=== PATIENT | female | born 1960 | race Caucasian/White ===

== ENCOUNTER 2017-05-20 08:25 | Day surgery (SDC) | payer MEDICARE, SELFPAY ==
[2017-05-20] MEDS ORDERED: fentaNYL 100 MCG/2 ML SDV ONE (08:51)
[2017-05-20] MEDS ORDERED: Propofol 200 MG/20 ML SDV ONE (08:51)
[2017-05-20] MEDS ORDERED: Midazolam 1 MG/ML 2 ML SDV ONE (08:51)
[2017-05-20] MEDS ORDERED: Lidocaine 2% 5 ML SDV ONE (08:51)
[2017-05-20] MEDS ORDERED: Sodium Chloride 0.9% 5 ML Syringe FLUSH PRN (09:00)
[2017-05-20] MEDS ORDERED: Lactated Ringers 1,000 ML IV SCH (09:00)
[2017-05-20] MEDS ORDERED: Propofol 200 MG/20 ML SDV IV ONE (10:01)
[2017-05-20] MEDS ORDERED: Midazolam 1 MG/ML 2 ML SDV IV ONE (10:01)
[2017-05-20] MEDS ORDERED: fentaNYL 100 MCG/2 ML SDV IV ONE (10:01)
--- NOTE | 2017-05-20 10:42 | PCM.OPNOTE ---
- General Post-Op/Procedure Note Date of Surgery/Procedure: 05/20/17 Operative Procedure(s): Upper GI endoscopy Findings: a 5 cm hiatal hernia with mild reflux esophagitis. Pre Op Diagnosis: Persistent epigastric discomfort, frequent vomiting. Anesthesia Technique: MAC Primary Surgeon: Mickie Edwards Complications: None Condition: Good Free Text/Narrative:: INFORMED CONSENT: Patient is here today for elective upper GI endoscopy. All aspects of this procedure have been discussed with the patient. All possible complications also, including possibility of perforation, infection, pain, bleeding, numbness of the throat, swallowing difficulty and unknown complications. In the event of perforation the patient may need surgical exploration to repair the defect. The patient understands fully well. Patient did not have any further questions for me at the end of my interview. The patient wishes for me to proceed. INSTRUMENT USED: Video gastroscope ANESTHESIA: [MAC] ASA CLASSIFICATION: [2] PROCEDURE PERFORMED: [Upper gastrointestinal endoscopy] PHARYNX: Normal. ESOPHAGUS: Normal. Proximal: Normal. Middle: Normal. Lower: small hiatal hernia with mild reflux esophagitis noted. No ulceration noted.. GE Junction: Normal. STOMACH: small pouch, previous gastric bypass. stomach completely normal. Afferent and efferent openings are both normal. No evidence of obstruction or ulceration noted. RETROFLEXION: Normal. BIOPSY: None. TOLERANCE: Excellent. COMPLICATIONS: None.
[2017-05-20 11:17] VITALS: BP 110/72
== END 2017-05-20 12:05 | disposition home or self-care (01) ==
LOC: KA.SDS 08:25
PROVIDERS: ATTEND Family Medicine
DX: K21.0 Gastro-esophageal reflux disease with esophagitis (principal); K44.9 Diaphragmatic hernia without obstruction or gangrene; Z98.84 Bariatric surgery status; Z91.040 Latex allergy status; Z79.82 Long term (current) use of aspirin; Z79.899 Other long term (current) drug therapy; Z98.890 Other specified postprocedural states
CPT/HCPCS: 43235; J2250; J2704; J3010; J7120; 00740

== ENCOUNTER 2017-10-04 13:25 | Emergency (ER) | payer MEDICARE, MEDICAID ==
[2017-10-04 13:49] VITALS: BP 131/77
--- NOTE | 2017-10-04 14:45 | EDM.PDOC ---
ED HPI GENERAL MEDICAL PROBLEM - General Chief Complaint: Lower Extremity Injury/Pain Stated Complaint: LEFT HIP PAIN Time Seen by Provider: 10/04/17 14:39 Source of Information: Reports: Patient History Limitations: Reports: No Limitations - History of Present Illness INITIAL COMMENTS - FREE TEXT/NARRATIVE: Patient is a 57-year-old female who presents emergency department today with complaint of hip and pelvis pain secondary to fall yesterday morning. Patient states that her knees are very weak and she fell backwards landing on her buttocks. Patient states that she also fell about 2 weeks ago and that she has problems with her knees. Patient denies head trauma, dizziness, syncope, fall on left side, abdominal pain, chest pain, shortness of breath, headache, or blurry vision. Onset Date: 10/03/17 Onset Time: 07:30 Duration: Day(s): Location: Reports: Pelvis Quality: Reports: Ache Severity: Mild Improves with: Reports: None Worsens with: Reports: Movement Context: Reports: Trauma Associated Symptoms: Reports: No Other Symptoms Left Hip Pain Score (Numeric/FACES): 10 - Related Data Allergies Allergy/AdvReac Type Severity Reaction Status Date / Time Latex, Natural Rubber Allergy Rash Verified 10/04/17 13:47 Home Meds: Home Meds ARIPiprazole [Abilify] 10 mg PO DAILY 10/04/17 [History] Acetaminophen [Acetaminophen 8 Hour] 650 mg PO TID 10/04/17 [History] Aspirin 81 mg PO DAILY 10/04/17 [History] B12/Levomefolate Calcium/B-6 [Foltx Tablet] 1,000 mcg IM ASDIRECTED 10/04/17 [ History] Cholecalciferol (Vitamin D3) [Vitamin D] 5,000 unit PO DAILY 10/04/17 [History] Estrogens, Conjugated [Premarin] 1 tab PO DAILY 10/04/17 [History] Ferrous Sulfate 325 mg PO QID 10/04/17 [History] Lisinopril/Hydrochlorothiazide [Lisinopril-Hctz 10-12.5 mg Tab] 1 tab PO BID [History] Morphine [MS Contin] 15 mg PO BID 10/04/17 [History] Multivitamin [Multivitamins] 1 tab PO DAILY 10/04/17 [History] Pantoprazole Sodium [Protonix] 40 mg PO BID 10/04/17 [History] Past Medical History HEENT History: Reports: Cataract, Impaired Vision Cardiovascular History: Reports: Hypertension Gastrointestinal History: Reports: Chronic Diarrhea, GERD, Hiatal Hernia Genitourinary History: Reports: None 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: Musculoskeletal History: Reports: Arthritis Neurological History: Reports: Migraines Psychiatric History: Reports: Depression Endocrine/Metabolic History: Reports: Obesity/BMI 30+ Hematologic History: Reports: Blood Transfusion(s) - Infectious Disease History Infectious Disease History: Reports: Mumps - Past Surgical History HEENT Surgical History: Reports: Tonsillectomy Cardiovascular Surgical History: Reports: None GI Surgical History: Reports: Appendectomy, Bariatric Procedure, Cholecystectomy , Colonoscopy, EGD Female Surgical History: Reports: Hysterectomy Endocrine Surgical History: Reports: None Neurological Surgical History: Reports: None Musculoskeletal Surgical History: Reports: Arthroscopic Knee Social & Family History - Tobacco Use Smoking Status *Q: Never Smoker - Caffeine Use Caffeine Use: Reports: Coffee, Soda - Recreational Drug Use Recreational Drug Use: No Review of Systems - Review of Systems Review Of Systems: ROS reveals no pertinent complaints other than HPI. Constitutional: Reports: No Symptoms Eyes: Reports: No Symptoms Ears: Reports: No Symptoms Nose: Reports: No Symptoms Mouth/Throat: Reports: No Symptoms Respiratory: Reports: No Symptoms Cardiovascular: Reports: No Symptoms GI/Abdominal: Reports: No Symptoms Genitourinary: Reports: No Symptoms Musculoskeletal: Reports: Back Pain (Of chronic nature), Other (Left pelvis pain ) Skin: Reports: No Symptoms Neurological: Reports: No Symptoms Psychiatric: Reports: No Symptoms ED EXAM, GENERAL - Physical Exam Exam: See Below Free Text/Narrative:: Patient is morbidly obese Exam Limited By: No Limitations General Appearance: Alert, WD/WN, No Apparent Distress Nose: Normal Inspection, No Blood Throat/Mouth: Normal Inspection, Normal Oropharynx, No Airway Compromise Head: Atraumatic, Normocephalic Neck: Normal Inspection, Supple, Non-Tender Respiratory/Chest: No Respiratory Distress, Lungs Clear, Normal Breath Sounds, No Accessory Muscle Use, Chest Non-Tender Cardiovascular: Regular Rate, Rhythm, No Murmur GI/Abdominal: Normal Bowel Sounds, Soft Back Exam: Other (Left lateral pelvis discomfort with palpation.). No: CVA Tenderness (L), CVA Tenderness (R) Extremities: Normal Inspection Neurological: Alert, Oriented, CN II-XII Intact, Normal Cognition Psychiatric: Normal Affect, Normal Mood Skin Exam: Warm, Dry, Intact, Normal Color, No Rash Course - Vital Signs Last Recorded V/S: Last Vital Signs Temp 97.4 F 10/04/17 13:41 Pulse 87 10/04/17 13:41 Resp 20 10/04/17 13:41 BP 131/77 10/04/17 13:41 Pulse Ox 99 10/04/17 13:41 - Orders/Labs/Meds Orders: Active Orders 24 hr Category Date Time Status Pelvis 1V or 2V [CR] Stat Exams 10/04/17 14:40 Ordered - Radiology Interpretation Free Text/Narrative:: PELVIS X-RAY NEGATIVE FOR ACUTE PROCESS - Re-Assessments/Exams Free Text/Narrative Re-Assessment/Exam: 10/04/17 16:03 PATIENT AFEBRILE, NONTOXIC APPEARING. VITAL SIGNS STABLE. PAIN RESOLVED AND PATIENT ABLE TO AMBULATE. Departure - Departure Time of Disposition: 16:04 Disposition: Home, Self-Care 01 Condition: Good Clinical Impression: Morbid obesity, BMI not known Hip joint pain Qualifiers: Laterality: left Qualified Code(s): M25.552 - Pain in left hip - Discharge Information Instructions: Hip Pain, Fall Prevention in the Home, [id number] Referrals: Adeel Jackson, MORTGAGE BANKER [Primary Care Provider] - Additional Instructions: FOLLOW-UP AT [facility] SCHEDULED ON THURSDAY. CONTINUE LISINOPRIL 10 MG ONCE A DAY AND NOT TWICE A DAY. - My Orders Last 24 Hours: My Active Orders 10/04/17 14:40 Pelvis 1V or 2V [CR] Stat - Assessment/Plan Last 24 Hours: My Active Orders 10/04/17 14:40 Pelvis 1V or 2V [CR] Stat Assessment:: HIP PAIN Plan: FOLLOW-UP WITH PCP
== END 2017-10-04 16:15 | disposition home or self-care (01) ==
LOC: MERGE 13:25 → KA.ED 13:25
DX: M25.552 Pain in left hip (principal); E66.01 Morbid (severe) obesity due to excess calories; I10 Essential (primary) hypertension; K21.9 Gastro-esophageal reflux disease without esophagitis; Z79.82 Long term (current) use of aspirin; Z79.899 Other long term (current) drug therapy; Z91.040 Latex allergy status
CPT/HCPCS: 72170; 99283

== ENCOUNTER 2017-12-08 10:09 | Inpatient (IN) | payer MEDICARE, OTHER ==
[2017-12-08] MEDS ORDERED: B12 IM SCH (20:30)
[2017-12-08] MEDS ORDERED: LEVOMEFOLATE CALCIUM IM SCH (20:30)
[2017-12-08] MEDS ORDERED: B6 IM SCH (20:30)
[2017-12-08] MEDS: Morphine 15 MG Tab.ER PO SCH (21:31)
[2017-12-08] MEDS: Apixaban 2.5 MG Tab PO SCH (21:31)
[2017-12-08] MEDS: Lisinopril 10 MG Tab PO SCH (21:32)
[2017-12-08] MEDS: Acetaminophen 650 MG Tab.ER PO SCH (21:32)
[2017-12-08] MEDS: Omeprazole 20 MG Cap.CR PO SCH (21:32)
[2017-12-08] MEDS: Hydrochlorothiazide 12.5 MG Cap PO SCH (21:33)
[2017-12-08] MEDS: Ergocalciferol (Vitamin D2) 50,000 Unit Cap PO SCH (21:34)
[2017-12-09] MEDS: Acetaminophen 650 MG Tab.ER PO SCH ×4 (05:54→20:50)
[2017-12-09] MEDS: Omeprazole 20 MG Cap.CR PO SCH ×2 (06:18→17:13)
[2017-12-09] MEDS: DULoxetine 30 MG Cap PO SCH (09:47)
[2017-12-09] MEDS: Hydrochlorothiazide 12.5 MG Cap PO SCH ×2 (09:49→20:49)
[2017-12-09] MEDS: Lisinopril 10 MG Tab PO SCH ×2 (09:49→20:49)
[2017-12-09] MEDS: Morphine 15 MG Tab.ER PO SCH ×2 (09:50→20:53)
[2017-12-09] MEDS: tiZANidine 4 MG Tab PO SCH (09:50)
[2017-12-09] MEDS: Apixaban 2.5 MG Tab PO SCH (09:51)
[2017-12-09] MEDS: ARIPiprazole 5 MG Tab PO SCH (09:51)
[2017-12-09] MEDS: Estradiol 0.5 MG Tab PO SCH (09:51)
[2017-12-09] MEDS: Acetaminophen/HYDROcodone 325-5 MG Tab PO PRN (14:03)
--- NOTE | 2017-12-09 15:05 | HP ---
HISTORY OF PRESENT ILLNESS: This is a 57-year-old female patient who underwent right total knee replacement by Dr. Arnold in [facility] on 12/02/2017. The patient was transferred here for swing bed status. The patient today states she is doing okay. She says she keeps putting ice on the knee. She says it is still little swollen, but not very bruised. She says she has no other health concerns. She is feeling pretty good. PAST MEDICAL HISTORY: The patient does have a past medical history of osteoarthritis, chronic pain, mood disorder with depression, menopausal female, hypertension, GERD, migraines. PAST SURGICAL HISTORY: Recent right total knee arthroplasty. MEDICATIONS: Medications that she was taking at home; she gets a B12 injection 1000 mcg monthly, she takes an aspirin 81 mg daily, lisinopril 10 mg twice a day, HCTZ 12.5 mg twice a day, she takes Zanaflex 4 mg daily, she takes Imitrex 25 mg as needed for migraine headaches, she takes Zantac 150 mg at bedtime, she takes Protonix 20 mg twice a day, Cymbalta 120 mg daily, Tylenol as needed, Abilify 5 mg daily, MS Contin 15 mg twice a day, estradiol 0.5 mg daily, and she was recently started after surgery on Eliquis 2.5 mg twice a day. ALLERGIES: She is allergic to latex and rubber. SOCIAL PERSONAL HISTORY: The patient lives at the [facility] at this time. She will likely go back there. No alcohol or tobacco use. REVIEW OF SYSTEMS: CONSTITUTIONAL: No weight loss. No fever. No chills. No night sweats. Appetite is good. No fatigue. EYES: No recent visual changes. ENT: No sinus congestion or hoarseness. CARDIOVASCULAR: No chest pain or palpitations. RESPIRATORY: No cough. No shortness of breath. GI: No vomiting, diarrhea or melena. : No dysuria or hematuria. MUSCULOSKELETAL: Complaining of right knee swelling and occasional pain with walking. INTEGUMENTARY: No rash or pruritus. NEUROLOGIC/PSYCHIATRIC: No recent headache or focal weakness. No depressive symptoms. ENDOCRINE: No heat or cold intolerances or polydipsia. HEMATOLOGIC/LYMPHATIC: No excessive bruising or lymph node swelling. ALLERGIC/IMMUNOLOGIC: No hives or recurrent infections. PHYSICAL EXAMINATION: GENERAL: This is an elderly female, in no acute distress. VITAL SIGNS: 144/89, temperature is 98.8, pulse is 99, respiratory rate is 18, oxygen saturation on room air is 100%. HEENT: Head is normocephalic. Tympanic membranes are intact. EOMs are intact. Pupils are equal, round, to light and accommodation. Nose is clear. No pharyngeal erythema noted. RESPIRATORY: Lung sounds are clear in upper lobes, slightly diminished at bilateral bases. CARDIAC: Regular rate and rhythm. No murmurs identified. ABDOMEN: Large, soft, nontender, nondistended. Bowel sounds present x4. EXTREMITIES: Right knee has an incision, very mild ecchymosis, slightly swollen. Incision looks good. All other joints have no joint effusions. NEUROLOGIC: Grossly intact. DIAGNOSTIC: The patient had a hemoglobin drawn yesterday at [facility], it was 8.4. IMPRESSION/PLAN: 1. Right total knee arthroplasty. Plan: The patient's incision looks good. She is scheduled for physical therapy today at 2:30. We will continue with anticoagulation of Eliquis 2.5 mg twice a day. She also gets a Zanaflex 4 mg daily to help with muscle spasms. 2. Chronic pain with acute pain from recent surgery. Plan: We will continue with the patient's MS Contin 15 mg twice daily that she has been on. I am going to give her some hydrocodone 5/325 that she can have one tab before and after therapy as needed for right knee pain. 3. Mood disorder with depression. Plan: Continue with Abilify 5 mg daily along with Cymbalta 120 mg daily. 4. Menopausal female. Plan: Continue with estradiol 0.5 mg daily. 5. Hypertension has been controlled so far. We will continue with HCTZ 12.5 mg twice a day along with lisinopril 10 mg twice a day. 6. Gastroesophageal reflux disease. Plan: Continue with omeprazole 20 mg twice a day along with Zantac 150 mg at bedtime. 7. History of migraine headaches. Plan: Continue with Imitrex 25 mg as needed for headaches. 8. Urinary frequency. Plan: The patient complains of some urinary frequency during the night. I will obtain a urinalysis today. /[id number]/MODL
[2017-12-09] MEDS: Apixaban 5 MG Tab PO SCH (20:48)
[2017-12-10] MEDS: Acetaminophen/HYDROcodone 325-5 MG Tab PO PRN ×2 (05:10→14:05)
[2017-12-10] MEDS: Omeprazole 20 MG Cap.CR PO SCH ×2 (06:09→17:09)
[2017-12-10] MEDS: DULoxetine 30 MG Cap PO SCH (08:15)
[2017-12-10] MEDS: Hydrochlorothiazide 12.5 MG Cap PO SCH ×2 (08:16→20:58)
[2017-12-10] MEDS: ARIPiprazole 5 MG Tab PO SCH (08:16)
[2017-12-10] MEDS: Estradiol 0.5 MG Tab PO SCH (08:16)
[2017-12-10] MEDS: tiZANidine 4 MG Tab PO SCH (08:16)
[2017-12-10] MEDS: Apixaban 5 MG Tab PO SCH ×2 (08:17→20:57)
[2017-12-10] MEDS: Lisinopril 10 MG Tab PO SCH ×2 (08:17→20:59)
[2017-12-10] MEDS: Acetaminophen 650 MG Tab.ER PO SCH ×4 (08:18→20:58)
[2017-12-10] MEDS: Aspirin 81 MG Tab.EC PO SCH (08:19)
[2017-12-10] MEDS: Morphine 15 MG Tab.ER PO SCH ×2 (08:21→20:58)
[2017-12-10] MEDS: Sulfamethoxazole/Trimethoprim 800-160 MG Tab PO SCH ×2 (10:03→20:58)
[2017-12-11] MEDS: Acetaminophen/HYDROcodone 325-5 MG Tab PO PRN ×2 (00:35→19:49)
[2017-12-11] MEDS: Omeprazole 20 MG Cap.CR PO SCH ×2 (06:19→17:46)
[2017-12-11] MEDS: Morphine 15 MG Tab.ER PO SCH ×2 (08:06→20:42)
[2017-12-11] MEDS: Acetaminophen 650 MG Tab.ER PO SCH ×3 (08:08→20:39)
[2017-12-11] MEDS: tiZANidine 4 MG Tab PO SCH (08:08)
[2017-12-11] MEDS: Lisinopril 10 MG Tab PO SCH ×2 (08:09→20:39)
[2017-12-11] MEDS: Hydrochlorothiazide 12.5 MG Cap PO SCH ×2 (08:09→20:39)
[2017-12-11] MEDS: Sulfamethoxazole/Trimethoprim 800-160 MG Tab PO SCH ×2 (08:09→20:39)
[2017-12-11] MEDS: Estradiol 0.5 MG Tab PO SCH (08:10)
[2017-12-11] MEDS: DULoxetine 30 MG Cap PO SCH (08:10)
[2017-12-11] MEDS: Apixaban 5 MG Tab PO SCH ×2 (08:10→20:39)
[2017-12-11] MEDS: ARIPiprazole 5 MG Tab PO SCH (08:11)
[2017-12-12] MEDS: Omeprazole 20 MG Cap.CR PO SCH ×2 (06:31→17:08)
[2017-12-12] MEDS: Acetaminophen 650 MG Tab.ER PO SCH ×3 (09:07→21:14)
[2017-12-12] MEDS: tiZANidine 4 MG Tab PO SCH (09:07)
[2017-12-12] MEDS: Sulfamethoxazole/Trimethoprim 800-160 MG Tab PO SCH ×2 (09:08→21:14)
[2017-12-12] MEDS: Lisinopril 10 MG Tab PO SCH ×2 (09:08→21:13)
[2017-12-12] MEDS: Hydrochlorothiazide 12.5 MG Cap PO SCH ×2 (09:08→21:13)
[2017-12-12] MEDS: Apixaban 5 MG Tab PO SCH ×2 (09:08→21:12)
[2017-12-12] MEDS: Estradiol 0.5 MG Tab PO SCH (09:09)
[2017-12-12] MEDS: DULoxetine 30 MG Cap PO SCH (09:09)
[2017-12-12] MEDS: ARIPiprazole 5 MG Tab PO SCH (09:09)
[2017-12-12] MEDS: Morphine 15 MG Tab.ER PO SCH ×2 (09:11→21:18)
[2017-12-12] MEDS: Acetaminophen/HYDROcodone 325-5 MG Tab PO PRN (15:30)
[2017-12-13] MEDS: Acetaminophen/HYDROcodone 325-5 MG Tab PO PRN ×2 (05:54→17:22)
[2017-12-13] MEDS: Omeprazole 20 MG Cap.CR PO SCH ×2 (05:59→17:22)
[2017-12-13] MEDS: Acetaminophen 650 MG Tab.ER PO SCH ×3 (08:44→20:49)
[2017-12-13] MEDS: tiZANidine 4 MG Tab PO SCH (08:44)
[2017-12-13] MEDS: Hydrochlorothiazide 12.5 MG Cap PO SCH ×2 (08:45→20:47)
[2017-12-13] MEDS: Lisinopril 10 MG Tab PO SCH ×2 (08:45→20:48)
[2017-12-13] MEDS: Morphine 15 MG Tab.ER PO SCH ×2 (08:45→20:53)
[2017-12-13] MEDS: Estradiol 0.5 MG Tab PO SCH (08:46)
[2017-12-13] MEDS: DULoxetine 30 MG Cap PO SCH (08:46)
[2017-12-13] MEDS: Apixaban 5 MG Tab PO SCH ×2 (08:46→20:46)
[2017-12-13] MEDS: ARIPiprazole 5 MG Tab PO SCH (08:46)
[2017-12-14] MEDS: Acetaminophen/HYDROcodone 325-5 MG Tab PO PRN ×2 (02:31→14:24)
[2017-12-14] MEDS: Omeprazole 20 MG Cap.CR PO SCH ×2 (06:05→17:51)
[2017-12-14] MEDS: Morphine 15 MG Tab.ER PO SCH ×2 (08:06→20:47)
[2017-12-14] MEDS: DULoxetine 30 MG Cap PO SCH (08:07)
[2017-12-14] MEDS: ARIPiprazole 5 MG Tab PO SCH (08:07)
[2017-12-14] MEDS: Apixaban 5 MG Tab PO SCH ×2 (08:08→20:45)
[2017-12-14] MEDS: Estradiol 0.5 MG Tab PO SCH (08:09)
[2017-12-14] MEDS: tiZANidine 4 MG Tab PO SCH (08:09)
[2017-12-14] MEDS: Hydrochlorothiazide 12.5 MG Cap PO SCH ×2 (08:10→20:47)
[2017-12-14] MEDS: Lisinopril 10 MG Tab PO SCH ×2 (08:10→20:47)
[2017-12-14] MEDS: Acetaminophen 650 MG Tab.ER PO SCH ×4 (09:00→20:47)
[2017-12-15] MEDS: Acetaminophen/HYDROcodone 325-5 MG Tab PO PRN ×2 (02:41→13:24)
[2017-12-15] MEDS: Omeprazole 20 MG Cap.CR PO SCH ×2 (06:11→17:55)
[2017-12-15] MEDS: Ergocalciferol (Vitamin D2) 50,000 Unit Cap PO SCH (07:57)
[2017-12-15] MEDS: ARIPiprazole 5 MG Tab PO SCH (08:11)
[2017-12-15] MEDS: Hydrochlorothiazide 12.5 MG Cap PO SCH ×2 (08:11→15:16)
[2017-12-15] MEDS: Apixaban 5 MG Tab PO SCH ×2 (08:11→20:53)
[2017-12-15] MEDS: DULoxetine 30 MG Cap PO SCH (08:11)
[2017-12-15] MEDS: Estradiol 0.5 MG Tab PO SCH (08:11)
[2017-12-15] MEDS: tiZANidine 4 MG Tab PO SCH (08:12)
[2017-12-15] MEDS: Acetaminophen 650 MG Tab.ER PO SCH ×3 (08:12→20:54)
[2017-12-15] MEDS: Morphine 15 MG Tab.ER PO SCH ×2 (08:12→20:58)
[2017-12-15] MEDS: Lisinopril 10 MG Tab PO SCH ×2 (08:13→15:15)
[2017-12-16] MEDS: Acetaminophen/HYDROcodone 325-5 MG Tab PO PRN ×2 (01:51→12:16)
[2017-12-16] MEDS: Omeprazole 20 MG Cap.CR PO SCH ×2 (06:30→17:11)
[2017-12-16] MEDS: ARIPiprazole 5 MG Tab PO SCH (08:21)
[2017-12-16] MEDS: Acetaminophen 650 MG Tab.ER PO SCH ×3 (08:21→21:05)
[2017-12-16] MEDS: Morphine 15 MG Tab.ER PO SCH ×2 (08:21→21:05)
[2017-12-16] MEDS: Hydrochlorothiazide 12.5 MG Cap PO SCH ×2 (08:22→16:03)
[2017-12-16] MEDS: Apixaban 5 MG Tab PO SCH ×2 (08:22→21:05)
[2017-12-16] MEDS: Lisinopril 10 MG Tab PO SCH ×2 (08:23→16:03)
[2017-12-16] MEDS: DULoxetine 30 MG Cap PO SCH (08:24)
[2017-12-16] MEDS: Estradiol 0.5 MG Tab PO SCH (08:25)
[2017-12-16] MEDS: tiZANidine 4 MG Tab PO SCH (08:25)
[2017-12-16] MEDS: Oxybutynin 5 MG Tab PO SCH ×2 (10:45→21:05)
--- NOTE | 2017-12-16 11:48 | PN ---
12/16/2017 PATIENT NAME: RUPALI BRIONES CHIEF COMPLAINT: Doing overall quite well. Still has some ongoing urinary frequency despite antibiotics given. Mild urinary tract infection was treated. Likely overactive bladder. Otherwise, she is doing well, progressing in physical therapy. She does have some mild constipation likely due to opioid- induced constipation. HISTORY: This 57-year-old female was admitted for swing bed therapy after undergoing a right total knee replacement by Dr. Arnold, orthopedic surgeon in [place] December 02, approximately two weeks ago. She has been in physical therapy, doing quite well, is just a few days away from possible discharge. REVIEW OF SYSTEMS: LUNGS: Clear to auscultation. No cough. CV: Denies any chest pain. GI: Mild constipation. : Some frequency of urine with urgency mainly at night. PHYSICAL EXAM: VITAL SIGNS: Blood pressure 109/63, temperature 98.4, heart rate 90, O2 sats 97% on room air. CV: Regular rate and rhythm. No murmur. LUNGS: Clear to auscultation. GI: Soft, nontender. Good bowel tones. EXTREMITIES: Lower extremities, mild generalized edema. Right knee, no wound dehiscence. Midline scar through the knee. Does have surgical tape applied. No josh. No signs of erythema. Good distal pulses. LABS: UA slightly cloudy with a few bacteria, negative ketones, occult blood, nitrate, bilirubin, leukocyte esterase, all negative. IMPRESSION/PLAN: 1. Total right knee arthroplasty. Date of surgery December 02. We will remove surgical glue/tape in 2-3 days. Incision looks good. Continue with physical therapy. She is on anticoagulation, Eliquis 2.5 mg b.i.d., stop date placed. 2. Mild muscle spasms, lower extremity. She is on Zanaflex 4 mg p.o. daily. 3. Pain management. The patient does have underlying chronic pain. She had been on MS Contin 15 mg b.i.d., however, for breakthrough pain for physical therapy, did add hydrocodone 5/325 as directed. 4. Mild opioid-induced constipation. Place her on senna-S. Other chronic conditions include mood disorder with depression. Continue with Abilify and Cymbalta. 5. History of hypertension. She is on hydrochlorothiazide along with lisinopril. Blood pressure has been stable. 6. Gastroesophageal reflux disease, on PPI therapy along with H2 therapy at nighttime. 7. History of migraines. She is on Imitrex as needed. 8. Overactive bladder. We will place her on oxybutynin. OVERALL PLAN: Continue physical therapy. She is doing well. Most likely to go home in a few days. She does have a roommate who recently had surgery and she helps the patient with mobility so it would be important for the patient to remain in inpatient physical therapy for a few more days until her roommate can convalesce and provide more of a safety plan at home. /[id number]/MODL
[2017-12-17] MEDS: Acetaminophen/HYDROcodone 325-5 MG Tab PO PRN ×2 (03:10→12:12)
[2017-12-17] MEDS: Omeprazole 20 MG Cap.CR PO SCH ×2 (06:22→16:25)
[2017-12-17] MEDS: Aspirin 81 MG Tab.EC PO SCH (07:44)
[2017-12-17] MEDS: Lisinopril 10 MG Tab PO SCH ×2 (07:45→16:24)
[2017-12-17] MEDS: Hydrochlorothiazide 12.5 MG Cap PO SCH ×2 (07:45→16:24)
[2017-12-17 08:04] LABS: CHLORIDE,CL 100 mmol/L (98-115); SODIUM,NA 136 mmol/L (136-145)
[2017-12-17] MEDS: ARIPiprazole 5 MG Tab PO SCH (08:36)
[2017-12-17] MEDS: DULoxetine 30 MG Cap PO SCH (08:37)
[2017-12-17] MEDS: Apixaban 5 MG Tab PO SCH ×2 (08:37→20:34)
[2017-12-17] MEDS: Estradiol 0.5 MG Tab PO SCH (08:38)
[2017-12-17] MEDS: Morphine 15 MG Tab.ER PO SCH ×2 (08:38→20:34)
[2017-12-17] MEDS: Oxybutynin 5 MG Tab PO SCH ×2 (08:38→20:34)
[2017-12-17] MEDS: Acetaminophen 650 MG Tab.ER PO SCH ×3 (08:39→20:34)
[2017-12-17] MEDS: tiZANidine 4 MG Tab PO SCH (08:39)
[2017-12-18] MEDS: Acetaminophen/HYDROcodone 325-5 MG Tab PO PRN ×2 (02:23→12:04)
[2017-12-18] MEDS: Omeprazole 20 MG Cap.CR PO SCH ×2 (06:31→17:15)
[2017-12-18] MEDS: Lisinopril 10 MG Tab PO SCH ×2 (07:43→16:06)
[2017-12-18] MEDS: Aspirin 81 MG Tab.EC PO SCH (07:43)
[2017-12-18] MEDS: Hydrochlorothiazide 12.5 MG Cap PO SCH ×2 (07:44→16:06)
[2017-12-18] MEDS: ARIPiprazole 5 MG Tab PO SCH (08:14)
[2017-12-18] MEDS: DULoxetine 30 MG Cap PO SCH (08:14)
[2017-12-18] MEDS: Apixaban 5 MG Tab PO SCH ×2 (08:15→21:26)
[2017-12-18] MEDS: Estradiol 0.5 MG Tab PO SCH (08:15)
[2017-12-18] MEDS: Acetaminophen 650 MG Tab.ER PO SCH ×3 (08:16→21:25)
[2017-12-18] MEDS: Oxybutynin 5 MG Tab PO SCH ×2 (08:16→21:26)
[2017-12-18] MEDS: tiZANidine 4 MG Tab PO SCH (08:17)
[2017-12-18] MEDS: Morphine 15 MG Tab.ER PO SCH ×2 (08:23→21:26)
[2017-12-19] MEDS: Acetaminophen/HYDROcodone 325-5 MG Tab PO PRN ×2 (02:33→19:19)
[2017-12-19] MEDS: Omeprazole 20 MG Cap.CR PO SCH ×2 (06:09→16:28)
[2017-12-19] MEDS: Morphine 15 MG Tab.ER PO SCH ×2 (08:24→21:28)
[2017-12-19] MEDS: Oxybutynin 5 MG Tab PO SCH ×2 (08:25→21:29)
[2017-12-19] MEDS: Lisinopril 10 MG Tab PO SCH ×2 (08:25→16:26)
[2017-12-19] MEDS: DULoxetine 30 MG Cap PO SCH (08:26)
[2017-12-19] MEDS: Hydrochlorothiazide 12.5 MG Cap PO SCH ×2 (08:26→16:26)
[2017-12-19] MEDS: Acetaminophen 650 MG Tab.ER PO SCH ×3 (08:27→21:28)
[2017-12-19] MEDS: Aspirin 81 MG Tab.EC PO SCH (08:28)
[2017-12-19] MEDS: tiZANidine 4 MG Tab PO SCH (08:28)
[2017-12-19] MEDS: Apixaban 5 MG Tab PO SCH ×2 (08:28→21:29)
[2017-12-19] MEDS: ARIPiprazole 5 MG Tab PO SCH (08:29)
[2017-12-19] MEDS: Estradiol 0.5 MG Tab PO SCH (08:29)
[2017-12-20] MEDS: Acetaminophen/HYDROcodone 325-5 MG Tab PO PRN (02:55)
[2017-12-20] MEDS: Omeprazole 20 MG Cap.CR PO SCH ×2 (06:04→16:28)
[2017-12-20] MEDS: Morphine 15 MG Tab.ER PO SCH ×2 (08:24→20:42)
[2017-12-20] MEDS: Acetaminophen 650 MG Tab.ER PO SCH ×3 (08:24→20:42)
[2017-12-20] MEDS: DULoxetine 30 MG Cap PO SCH (08:25)
[2017-12-20] MEDS: Lisinopril 10 MG Tab PO SCH ×2 (08:25→16:25)
[2017-12-20] MEDS: Oxybutynin 5 MG Tab PO SCH (08:26)
[2017-12-20] MEDS: Hydrochlorothiazide 12.5 MG Cap PO SCH ×2 (08:26→16:25)
[2017-12-20] MEDS: Estradiol 0.5 MG Tab PO SCH (08:26)
[2017-12-20] MEDS: tiZANidine 4 MG Tab PO SCH (08:27)
[2017-12-20] MEDS: ARIPiprazole 5 MG Tab PO SCH (08:27)
[2017-12-20] MEDS: Aspirin 81 MG Tab.EC PO SCH (08:27)
[2017-12-20 10:30] LABS: CHLORIDE,CL 99 mmol/L (98-115); SODIUM,NA 134 mmol/L (136-145)
[2017-12-20] MEDS: SUMAtriptan 25 MG Tab PO PRN (13:25)
[2017-12-21] MEDS: Acetaminophen/HYDROcodone 325-5 MG Tab PO PRN (02:49)
[2017-12-21] MEDS: SUMAtriptan 25 MG Tab PO PRN (05:05)
[2017-12-21] MEDS: Omeprazole 20 MG Cap.CR PO SCH ×2 (06:30→16:58)
[2017-12-21] MEDS: Aspirin 81 MG Tab.EC PO SCH (07:59)
[2017-12-21] MEDS: Morphine 15 MG Tab.ER PO SCH ×2 (09:10→20:25)
[2017-12-21] MEDS: ARIPiprazole 5 MG Tab PO SCH (09:11)
[2017-12-21] MEDS: DULoxetine 30 MG Cap PO SCH (09:11)
[2017-12-21] MEDS: tiZANidine 4 MG Tab PO SCH (09:12)
[2017-12-21] MEDS: Estradiol 0.5 MG Tab PO SCH (09:12)
[2017-12-21] MEDS: Acetaminophen 650 MG Tab.ER PO SCH ×3 (09:13→20:25)
[2017-12-21] MEDS: Lisinopril 10 MG Tab PO SCH ×2 (09:15→16:56)
[2017-12-21] MEDS: Hydrochlorothiazide 12.5 MG Cap PO SCH ×2 (09:16→16:56)
[2017-12-21] MEDS ORDERED: SUMAtriptan 25 MG Tab PO ONE (10:45)
--- NOTE | 2017-12-21 11:18 | PCM.DCSUM1 ---
Discharge Summary - Hospital Course Free Text/Narrative:: Date of admission: 12/08/17 Date of discharge: 12/22/17 Admission diagnoses: 1. Debility s/p R knee arthroplasty 2. Chronic low back pain 3. Opiate-induced constipation 4. Hypertension 5. GERD 6. Overactive bladder 7. Postmenopausal syndrome 8. Migraines 9. Depression Discharge diagnoses: 1. Debility s/p R knee arthroplasty 2. Chronic low back pain 3. Opiate-induced constipation 4. Hypertension 5. GERD 6. Overactive bladder 7. Postmenopausal syndrome 8. Migraines 9. Depression Consultations: None Procedures: None Hospital course: Ms. Collier is a 57yoF who underwent R knee arthroplasty on 12/02/17 and admitted for swing bed rehabilitation at [facility]. She progressed with physical therapy throughout her stay and was deemed ready for discharge to home with outpatient physical therapy. In addition to receiving anticoagulation with apixaban for 2 weeks per orthopedic surgery, she was given [place] 5/325 as needed for breakthrough pain on top of her chronic regimen of morphine 15mg BID and Senna- S for opioid induced constipation. She was given [place] 5/325 #20 at discharge. She was also continued on her other outpatient medications for chronic medical conditions. During her stay, it was noted that she has had overactive bladder and started on oxybutynin. She did experience some anticholinergic side effects and this was discontinued, so she may benefit from mirabegron. Additionally, it was noted that she has frequent migraines for which she takes sumatriptan around half the days of the month and may benefit from prevention medication. She will follow-up with her PCP ERNESTO Thorne, next week, and with orthopedic surgeon, Dr. Arnold, on 01/04/18 in [place] as planned. Follow-up recommendations: - Consider trial of mirabegron for overactive bladder - Consider migraine prevention medication given frequent headaches - Discharge Data Discharge Date: 12/22/17 Discharge Disposition: Home, Self-Care 01 Condition: Good - Patient Summary/Data Consults: Consultations 12/08/17 13:44 PT Evaluation and Treatment [CONS] Routine - Patient Instructions Diet: Usual Diet as Tolerated Activity: As Tolerated Showering/Bathing: May Shower Wound/Incision Care: Keep Operative Site/Wound Site Clean and Dry Notify Provider of: Fever, Increased Pain, Swelling and Redness, Drainage - Discharge Plan Prescriptions/Med Rec: Acetaminophen/HYDROcodone [[place] 325-5 MG] 1 tab PO BID PRN #20 tablet PRN Reason: Pain (Moderate 4-6) Home Medications: Home Meds Estradiol 0.5 mg PO DAILY 04/07/16 [History] SUMAtriptan Succinate [Sumatriptan Succinate] 25 mg PO DAILY PRN 04/07/16 [ History] Aspirin [Halfprin] 81 mg PO DAILY 05/11/17 [History] ARIPiprazole [Abilify] 5 mg PO DAILY 10/04/17 [History] Acetaminophen [Acetaminophen 8 Hour] 650 mg PO TID 10/04/17 [History] Lisinopril/Hydrochlorothiazide [Lisinopril-Hctz 10-12.5 mg Tab] 1 tab PO BID [History] Morphine [MS Contin] 15 mg PO BID 10/04/17 [History] Pantoprazole Sodium [Protonix] 20 mg PO BIDAC 10/04/17 [History] Ranitidine HCl [Zantac] 150 mg PO BEDTIME 10/05/17 [History] tiZANidine HCl [Tizanidine HCl] 4 mg PO DAILY 10/05/17 [History] Cyanocobalamin (Vitamin B-12) [Cyanocobalamin Injection] 1,000 mcg IM ASDIRECTED 12/08/17 [History] DULoxetine HCl [Cymbalta] 120 mg PO DAILY 12/08/17 [History] Ergocalciferol (Vitamin D2) [Vitamin D2] 50,000 unit PO TU 12/08/17 [History] Acetaminophen/HYDROcodone [[place] 325-5 MG] 1 tab PO BID PRN #20 tablet 12/21/17 [Rx] Referrals: Adeel Jackson, INDUSTRIAL EQUIPMENT WIRER [Primary Care Provider] - (Please schedule follow-up appointment for next week.) - Discharge Summary/Plan Comment DC Time >30 min.: Yes - General Info Date of Service: 12/21/17 Subjective Update: Ms. Collier reports ongoing improvement in mobility and feels ready for discharge on 12/22/17. Plans outpatient PT at [facility]. She has a migraine this morning which isn't resolved yet despite a dose of sumatriptan around 0500. She typically has headaches at least half the days of the month and is not on current preventative treatment. Yesterday morning, she had an episode of hypotension after her morning medications, which included recently started oxybutynin. - Patient Data Vitals - Most Recent: Last Vital Signs Temp 36.9 C 12/21/17 05:01 Pulse 76 12/21/17 05:01 Resp 18 12/21/17 05:01 BP 127/65 12/21/17 09:15 Pulse Ox 98 12/21/17 05:01 Weight - Most Recent: 120.474 kg I&O - Last 24 hours: Intake & Output 12/20/17 12/21/17 12/21/17 22:59 06:59 14:59 Intake Total 1300 300 Balance 1300 300 Med Orders - Current: Current Medications Acetaminophen (Tylenol Arthritis Pain) 650 mg PO TID [facility] Last Admin: 12/21/17 09:13 Dose: 650 mg Hydrocodone Bitart/Acetaminophen ([place] 325-5 Mg) 1 - 2 tab PO BID PRN PRN Reason: Pain (moderate 4-6) Last Admin: 12/21/17 02:49 Dose: 2 tab Aripiprazole (Abilify) 5 mg PO DAILY [facility] Last Admin: 12/21/17 09:11 Dose: 5 mg Aspirin (Halfprin) 81 mg PO WITHBREAKFAST [facility] Last Admin: 12/21/17 07:59 Dose: 81 mg Cyanocobalamin (Vitamin B12) 1,000 mcg IM ONETIME ONE Stop: 12/27/17 09:01 Duloxetine HCl (Cymbalta) 120 mg PO DAILY [facility] Last Admin: 12/21/17 09:11 Dose: 120 mg Ergocalciferol (Vitamin D2) 50,000 units PO Tu@0800 [facility] Last Admin: 12/15/17 07:57 Dose: 50,000 units Estradiol (Estradiol) 0.5 mg PO DAILY [facility] Last Admin: 12/21/17 09:12 Dose: 0.5 mg Hydrochlorothiazide (Hydrochlorothiazide) 12.5 mg PO BID@0800,1600 [facility] Last Admin: 12/21/17 09:16 Dose: 12.5 mg Lisinopril (Prinivil) 10 mg PO BID@0800,1600 [facility] Last Admin: 12/21/17 09:15 Dose: 10 mg Morphine Sulfate (Ms Contin) 15 mg PO BID [facility] Last Admin: 12/21/17 09:10 Dose: 15 mg Omeprazole (Omeprazole) 20 mg PO BID@0700,1700 [facility] Last Admin: 12/21/17 06:30 Dose: 20 mg Ranitidine HCl (Zantac) 150 mg PO BEDTIME [facility] Last Admin: 12/20/17 20:42 Dose: 150 mg Senna/Docusate Sodium (Senna Plus) 1 tab PO DAILY [facility] Last Admin: 12/21/17 09:12 Dose: 1 tab Sumatriptan Succinate (Imitrex) 25 mg PO DAILY PRN PRN Reason: Headache Last Admin: 12/21/17 05:05 Dose: 25 mg Sumatriptan Succinate (Imitrex) 25 mg PO ONETIME ONE Stop: 12/21/17 10:46 Tizanidine HCl (Zanaflex) 4 mg PO DAILY [facility] Last Admin: 12/21/17 09:12 Dose: 4 mg Discontinued Medications Hydrocodone Bitart/Acetaminophen ([place] 325-5 Mg) 1 tab PO DAILY PRN PRN Reason: Pain (moderate 4-6) Last Admin: 12/10/17 05:10 Dose: 1 tab Apixaban (Eliquis) 2.5 mg PO BID [facility] Last Admin: 12/09/17 09:51 Dose: 2.5 mg Apixaban (Eliquis) 2.5 mg PO BID [facility] Stop: 12/19/17 23:59 Last Admin: 12/19/17 21:29 Dose: 2.5 mg Hydrochlorothiazide (Hydrochlorothiazide) 12.5 mg PO BID [facility] Last Admin: 12/15/17 08:11 Dose: 12.5 mg Lisinopril (Prinivil) 10 mg PO BID [facility] Last Admin: 12/15/17 08:13 Dose: 10 mg Non-Formulary Medication (B12/Levomefolate Calcium/B-6 [Foltx Tablet]) 1,000 mcg IM ASDIRECTED [facility] Oxybutynin Chloride (Oxybutynin) 2.5 mg PO BID [facility] Last Admin: 12/20/17 08:26 Dose: 2.5 mg Trimethoprim/Sulfamethoxazole (Septra Ds) 1 tab PO BID [facility] Stop: 12/12/17 23:59 Last Admin: 12/12/17 21:14 Dose: 1 tab - Exam Physical Findings Comments:: GENERAL: Well-appearing morbidly obese adult female sitting in bedside chair in no acute distress. HEENT: Normocephalic, atraumatic. Conjunctiva clear. Nares patent without discharge. Mucous membranes moist. NECK: Supple, no masses. CV: Regular rate and rhythm, no murmurs, rubs, or gallops. 2+ radial pulses. PULMONARY: Normal effort, clear to auscultation bilaterally, no wheezes, rales, or rhonchi. ABDOMEN: Positive bowel sounds, soft, nontender, nondistended. EXTREMITIES: No edema, cyanosis, or clubbing. MUSCULOSKELETAL: Moves all extremities well. NEUROLOGICAL: No obvious deficits. DERMATOLOGIC: Incision on anterior R knee clean/dry/intact. No rashes or suspicious lesions in exposed areas. PSYCHIATRIC: Alert, interactive, appropriate affect. *Q Meaningful Use (DIS) - VTE *Q VTE Criteria *Q: - Stroke *Q Stroke Criteria *Q: - AMI *Q AMI Criteria *Q:
[2017-12-22] MEDS: Acetaminophen/HYDROcodone 325-5 MG Tab PO PRN (01:44)
[2017-12-22] MEDS: Omeprazole 20 MG Cap.CR PO SCH (06:25)
[2017-12-22] MEDS: Aspirin 81 MG Tab.EC PO SCH (08:11)
[2017-12-22] MEDS: Lisinopril 10 MG Tab PO SCH (08:12)
[2017-12-22] MEDS: Hydrochlorothiazide 12.5 MG Cap PO SCH (08:12)
[2017-12-22] MEDS: Ergocalciferol (Vitamin D2) 50,000 Unit Cap PO SCH (08:16)
[2017-12-22] MEDS: tiZANidine 4 MG Tab PO SCH (08:17)
[2017-12-22] MEDS: DULoxetine 30 MG Cap PO SCH (08:17)
[2017-12-22] MEDS: Estradiol 0.5 MG Tab PO SCH (08:17)
[2017-12-22] MEDS: ARIPiprazole 5 MG Tab PO SCH (08:17)
[2017-12-22] MEDS: Acetaminophen 650 MG Tab.ER PO SCH (08:18)
[2017-12-22 08:21] VITALS: BP 104/74
[2017-12-22] MEDS: Morphine 15 MG Tab.ER PO SCH (08:23)
[2017-12-27] MEDS ORDERED: Cyanocobalamin (Vitamin B12) 1,000 MCG/ML SDV IM ONE (09:00)
== END 2017-12-22 10:05 | disposition home or self-care (01) | DRG 561 ==
LOC: KA.MS 19:10
PROVIDERS: ADMIT Nurse Practitioner Family; ATTEND Family Medicine
DX: Z47.1 Aftercare following joint replacement surgery (principal); Z96.651 Presence of right artificial knee joint; R53.81 Other malaise; M54.5 Low back pain; G89.29 Other chronic pain; K59.03 Drug induced constipation; T40.605A Adverse effect of unspecified narcotics, initial encounter; Y92.230 Patient room in hospital as the place of occurrence of the external cause; I10 Essential (primary) hypertension; K21.9 Gastro-esophageal reflux disease without esophagitis; N32.81 Overactive bladder; N95.8 Other specified menopausal and perimenopausal disorders; G43.909 Migraine, unspecified, not intractable, without status migrainosus; F32.9 Major depressive disorder, single episode, unspecified; Z91.040 Latex allergy status; M62.838 Other muscle spasm
CPT/HCPCS: 36415; 80048; 81001; 84484; 85025; 87070; 97110-GP; 97162-GP; A9270-GY; G0283-GP

== ENCOUNTER 2017-12-24 21:33 | Emergency (ER) | payer MEDICARE ==
[2017-12-24 21:46] VITALS: BP 120/51
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
== END 2017-12-24 22:43 | disposition home or self-care (01) ==
LOC: KA.ED 21:33
DX: S39.012A Strain of muscle, fascia and tendon of lower back, initial encounter (principal); M25.561 Pain in right knee; I10 Essential (primary) hypertension; Z91.040 Latex allergy status; Z79.82 Long term (current) use of aspirin; Z79.899 Other long term (current) drug therapy; W19.XXXA Unspecified fall, initial encounter; Y92.002 Bathroom of unspecified non-institutional (private) residence as the place of occurrence of the external cause
CPT/HCPCS: 72100; 73562-RT; 99283

== ENCOUNTER 2017-12-30 13:10 | Emergency (ER) | payer MEDICARE, OTHER ==
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
[2017-12-30] MEDS ORDERED: Sodium Chloride 0.9% 5 ML Syringe FLUSH PRN (13:48)
[2017-12-30 14:21] LABS: CHLORIDE,CL 96 mmol/L (98-115); SODIUM,NA 133 mmol/L (136-145)
[2017-12-30] MEDS: Bisacodyl 10 MG Supp RECTAL ONE (14:23)
[2017-12-30] MEDS: Sodium Chloride 0.9% 1,000 ML IV ONE (14:30)
[2017-12-30] MEDS: Ondansetron 4 MG/2 ML SDV IVPUSH ONE (14:55)
[2017-12-30 15:07] VITALS: BP 130/61
== END 2017-12-30 16:00 | disposition home or self-care (01) ==
LOC: KA.ED 13:10
DX: N39.0 Urinary tract infection, site not specified (principal); K59.01 Slow transit constipation; I10 Essential (primary) hypertension; E66.9 Obesity, unspecified; Z91.040 Latex allergy status; Z79.82 Long term (current) use of aspirin; Z79.899 Other long term (current) drug therapy; Z90.410 Acquired total absence of pancreas; Z98.84 Bariatric surgery status; Z68.39 Body mass index [BMI] 39.0-39.9, adult
CPT/HCPCS: 36415; 74018; 80053; 81001; 83690; 85025; 87086; 87088; 96361; 96374; 99283; 99284; A9270-GY; J2405; J7030

== ENCOUNTER 2021-10-26 12:00 | Emergency (ER) | payer MEDICARE, OTHER ==
[2021-10-26 12:24] VITALS: BP 141/81; PULSE 96
[2021-10-26] MEDS: Diphtheria,Pertussis(Acell),Tetanus Vaccine 0.5 ML Syringe IM ONE (12:29)
== END 2021-10-26 12:55 | disposition home or self-care (01) ==
LOC: KA.ED 12:00
DX: S91.114A Laceration without foreign body of right lesser toe(s) without damage to nail, initial encounter (principal); I10 Essential (primary) hypertension; K21.9 Gastro-esophageal reflux disease without esophagitis; M06.9 Rheumatoid arthritis, unspecified; E66.9 Obesity, unspecified; Z68.37 Body mass index [BMI] 37.0-37.9, adult; Z23 Encounter for immunization; Z91.040 Latex allergy status; Z79.82 Long term (current) use of aspirin; Z79.899 Other long term (current) drug therapy; W18.30XA Fall on same level, unspecified, initial encounter; Y93.01 Activity, walking, marching and hiking
CPT/HCPCS: 12001; 73630-RT; 90471; 90715; 99283; 99283-25

== ENCOUNTER 2022-04-29 09:25 | Emergency (ER) | payer MEDICARE, OTHER ==
[2022-04-29 09:49] VITALS: BP 148/83; PULSE 92
[2022-04-29] MEDS ORDERED: Lidocaine 1% 5 ML VIAL INJECT ONE (09:57)
[2022-04-29] MEDS ORDERED: Bacitracin/Neomycin/Polymyxin B Oint 0.9 GM U/D Packet TOP ONE (10:39)
== END 2022-04-29 11:05 | disposition home or self-care (01) ==
LOC: KA.ED 09:25
DX: S91.114A Laceration without foreign body of right lesser toe(s) without damage to nail, initial encounter (principal); I10 Essential (primary) hypertension; K21.9 Gastro-esophageal reflux disease without esophagitis; E66.9 Obesity, unspecified; Z68.41 Body mass index [BMI] 40.0-44.9, adult; Z91.040 Latex allergy status; W23.1XXA Caught, crushed, jammed, or pinched between stationary objects, initial encounter
CPT/HCPCS: 12002; 99282; 99283

== ENCOUNTER 2022-09-23 11:01 | Day surgery (SDC) | payer MEDICARE, OTHER ==
[~2022-09-23 11:01] MED LIST: Lactated Ringers 1,000 ML IV SCH; Sodium Chloride 0.9% 10 ML Syringe FLUSH PRN
[2022-09-23] MEDS ORDERED: Glycopyrrolate 0.2 MG/ML SDV IVPUSH ONE (11:02)
[2022-09-23] MEDS ORDERED: Lidocaine 2% 5 ML SDV IV ONE (11:02)
[2022-09-23] MEDS ORDERED: Propofol 200 MG/20 ML SDV ONE (12:18)
[2022-09-23] MEDS ORDERED: Midazolam 1 MG/ML 2 ML SDV ONE (12:18)
[2022-09-23 18:33] VITALS: BP 151/84; PULSE 80
== END 2022-09-23 14:44 | disposition home or self-care (01) ==
LOC: KA.SDS 11:01
PROVIDERS: ATTEND Surgery
DX: R13.10 Dysphagia, unspecified (principal); E53.8 Deficiency of other specified B group vitamins; F32.A Depression, unspecified; K21.9 Gastro-esophageal reflux disease without esophagitis; I10 Essential (primary) hypertension; Z91.040 Latex allergy status; Z79.899 Other long term (current) drug therapy; Z98.84 Bariatric surgery status
CPT/HCPCS: 00731; J2250; J2704; J3490; J7120

== ENCOUNTER 2022-11-04 10:41 | Day surgery (SDC) | payer MEDICARE, OTHER ==
[2022-11-04] MEDS: Lactated Ringers 1,000 ML IV SCH (11:00)
[2022-11-04] MEDS ORDERED: Sodium Chloride 0.9% 10 ML Syringe FLUSH PRN (11:00)
[2022-11-04] MEDS ORDERED: Midazolam 1 MG/ML 2 ML SDV ONE (11:49)
[2022-11-04] MEDS ORDERED: Propofol 200 MG/20 ML SDV ONE (11:49)
[2022-11-04 14:19] VITALS: BP 138/83; PULSE 70
== END 2022-11-04 14:12 | disposition home or self-care (01) ==
LOC: KA.SDS 10:41
PROVIDERS: ATTEND Surgery
DX: R19.5 Other fecal abnormalities (principal); I10 Essential (primary) hypertension; F41.9 Anxiety disorder, unspecified; M19.90 Unspecified osteoarthritis, unspecified site; F32.A Depression, unspecified; U07.1 COVID-19; K21.9 Gastro-esophageal reflux disease without esophagitis; G47.00 Insomnia, unspecified; G43.919 Migraine, unspecified, intractable, without status migrainosus; E66.9 Obesity, unspecified; M81.0 Age-related osteoporosis without current pathological fracture; M06.9 Rheumatoid arthritis, unspecified; E55.9 Vitamin D deficiency, unspecified; Z91.040 Latex allergy status; Z79.899 Other long term (current) drug therapy; Z98.890 Other specified postprocedural states; Z68.41 Body mass index [BMI] 40.0-44.9, adult
CPT/HCPCS: J2250; J2704; J7120

== ENCOUNTER 2024-02-22 13:50 | Emergency (ER) | payer MEDICARE, OTHER ==
[2024-02-22] MEDS: Sodium Chloride 0.9% 2,000 ML IV ONE (14:05)
[2024-02-22] MEDS: Ondansetron 4 MG/2 ML SDV IVPUSH ONE (14:06)
[2024-02-22 14:07] LABS: BASOPHILS ABSOLUTE AUTO 0.03 10^3/uL (0.00-0.10); BASOPHILS PERCENT AUTO 0.5 % (0.0-1.0); EOSINOPHILS PERCENT AUTO 3.5 % (1.0-3.0); HEMATOCRIT 34.4 % (37.0-47.0); HEMOGLOBIN 10.7 g/dL (12.0-16.0); IMMATURE GRAN ABSOLUTE AUTO 0.01 10^3/uL (0.00-0.50); IMMATURE GRAN PERCENT AUTO 0.2 % (0.0-5.0); LYMPHOCYTES ABSOLUTE AUTO 1.43 10^3/uL (1.00-4.00); LYMPHOCYTES PERCENT AUTO 25.3 % (20.0-40.0); MEAN CORPUSCULAR HEMOGLOBIN 30.4 pg (27.0-31.0); MEAN CORPUSCULAR HGB CONC 31.1 g/dL (32.0-36.0); MEAN CORPUSCULAR VOLUME 97.7 fL (82.0-92.0); MEAN PLATELET VOLUME 9.8 fL (7.4-10.4); MONOCYTES ABSOLUTE AUTO 0.65 10^3/uL (0.10-0.80); MONOCYTES PERCENT AUTO 11.5 % (2.0-8.0); NEUTROPHILS ABSOLUTE AUTO 3.33 10^3/uL (2.50-7.00); PLATELET COUNT,PLT 230 10^3/uL (150-400); RED BLOOD CELL COUNT 3.52 10^6/uL (3.80-5.50); RED CELL DISTRIBUTION WIDTH 14.7 % (11.5-14.5); WHITE BLOOD CELL COUNT,WBC 5.65 10^3/uL (5.00-10.00)
[2024-02-22 14:23] LABS: ALANINE AMINOTRANSFERASE,ALT 15 U/L (14-63); ALBUMIN 3.11 g/dL (3.40-5.00); ALKALINE PHOSPHATASE 77 U/L (46-116); ANION GAP 12.2 mmol/L (5-15); ASPARTATE AMNIOTRANSFERASE,AST 13 U/L (15-37); BILIRUBIN TOTAL 0.6 mg/dL (0.2-1.0); BLOOD UREA NITROGEN,BUN 10 mg/dL (7-18); C-REACTIVE PROTEIN < 0.50 mg/dL (0.00-0.50); CALCIUM 8.8 mg/dL (8.7-10.3); CARBON DIOXIDE,CO2 30.4 mmol/L (21.0-32.0); CHLORIDE,CL 99 mmol/L (98-107); CREATININE 0.71 mg/dL (0.51-1.17); ESTIMATED GFR 94 mL/min (>=60); GLUCOSE RANDOM 93 mg/dL (70-140); LIPASE 11 U/L (16-77); POTASSIUM,K 3.6 mmol/L (3.5-5.1); PROTEIN TOTAL,TP 7.1 g/dL (6.4-8.2); SODIUM,NA 138 mmol/L (136-145)
[2024-02-22 14:46] LABS: APPEARANCE,URINE CLEAR (CLEAR); BILIRUBIN,URINE NEGATIVE (NEGATIVE); COLOR,URINE YELLOW (YELLOW); GLUCOSE,URINE NEGATIVE (NEGATIVE); KETONES,URINE 15 mg/dL (NEGATIVE); LEUKOCYTE ESTERASE,URINE NEGATIVE (NEGATIVE); NITRITE,URINE NEGATIVE (NEGATIVE); OCCULT BLOOD,URINE NEGATIVE (NEGATIVE); PROTEIN,URINE NEGATIVE (NEGATIVE); UROBILINOGEN,URINE 0.2 E.U./dL (0.2-1.0)
[2024-02-22] MEDS: Sodium Chloride 0.9% 1,000 ML IV ONE (15:29)
[2024-02-22 16:25] VITALS: BP 155/84; PULSE 66
== END 2024-02-22 16:40 | disposition home or self-care (01) ==
LOC: KA.ED 13:50
DX: R10.13 Epigastric pain (principal); I25.2 Old myocardial infarction; I11.0 Hypertensive heart disease with heart failure; I50.9 Heart failure, unspecified; E11.9 Type 2 diabetes mellitus without complications; E66.9 Obesity, unspecified; R11.2 Nausea with vomiting, unspecified; Z91.040 Latex allergy status; Z79.899 Other long term (current) drug therapy; Z79.82 Long term (current) use of aspirin; Z90.49 Acquired absence of other specified parts of digestive tract; Z98.84 Bariatric surgery status; Z68.41 Body mass index [BMI] 40.0-44.9, adult
CPT/HCPCS: 36415; 80053; 81003; 83690; 85025; 86140; 96361; 96374; 99284-25; J2405; J7030

== ENCOUNTER 2024-03-08 08:01 | Day surgery (SDC) | payer OTHER ==
[~2024-03-08 08:01] MED LIST changes: -Lactated Ringers 1,000 ML IV SCH
[2024-03-08] MEDS: Lactated Ringers 1,000 ML IV SCH (08:27)
[2024-03-08] MEDS ORDERED: Midazolam 1 MG/ML 2 ML SDV ONE (09:01)
[2024-03-08] MEDS ORDERED: Lidocaine 2% 100 MG/5 ML Syringe ONE (09:01)
[2024-03-08] MEDS ORDERED: Propofol 200 MG/20 ML SDV ONE (09:01)
[2024-03-08 12:58] VITALS: BP 140/69; PULSE 96
== END 2024-03-08 11:17 | disposition home or self-care (01) ==
LOC: KA.SDS 08:01
PROVIDERS: ATTEND Surgery
DX: K29.50 Unspecified chronic gastritis without bleeding (principal); K31.89 Other diseases of stomach and duodenum; R11.10 Vomiting, unspecified; F41.9 Anxiety disorder, unspecified; F32.A Depression, unspecified; K21.9 Gastro-esophageal reflux disease without esophagitis; I10 Essential (primary) hypertension; G47.00 Insomnia, unspecified; E66.9 Obesity, unspecified; Z91.040 Latex allergy status; Z79.899 Other long term (current) drug therapy; Z79.82 Long term (current) use of aspirin; Z98.84 Bariatric surgery status
CPT/HCPCS: 43239; J2250; J2704; J7120; 00731; J3490

== ENCOUNTER 2024-09-29 09:20 | Emergency (ER) | payer MEDICARE ==
[2024-09-29 10:17] LABS: BASOPHILS ABSOLUTE AUTO 0.02 10^3/uL (0.00-0.10); BASOPHILS PERCENT AUTO 0.2 % (0.0-1.0); EOSINOPHILS ABSOLUTE AUTO 0.18 10^3/uL (0.10-0.30); EOSINOPHILS PERCENT AUTO 2.1 % (1.0-3.0); HEMATOCRIT 35.5 % (37.0-47.0); HEMOGLOBIN 10.9 g/dL (12.0-16.0); IMMATURE GRAN ABSOLUTE AUTO 0.01 10^3/uL (0.00-0.04); IMMATURE GRAN PERCENT AUTO 0.1 % (0.0-0.4); LYMPHOCYTES ABSOLUTE AUTO 1.29 10^3/uL (1.00-4.00); LYMPHOCYTES PERCENT AUTO 14.8 % (20.0-40.0); MEAN CORPUSCULAR HEMOGLOBIN 31.3 pg (27.0-31.0); MEAN CORPUSCULAR HGB CONC 30.7 g/dL (32.0-36.0); MEAN PLATELET VOLUME 9.6 fL (7.4-10.4); MONOCYTES ABSOLUTE AUTO 0.91 10^3/uL (0.10-0.80); MONOCYTES PERCENT AUTO 10.4 % (2.0-8.0); NEUTROPHILS PERCENT AUTO 72.4 % (50.0-70.0); PLATELET COUNT,PLT 249 10^3/uL (150-400); RED BLOOD CELL COUNT 3.48 10^6/uL (3.80-5.50); RED CELL DISTRIBUTION WIDTH 15.8 % (11.5-14.5); WHITE BLOOD CELL COUNT,WBC 8.71 10^3/uL (5.00-10.00)
[2024-09-29 10:32] LABS: ALBUMIN 3.13 g/dL (3.40-5.00); BILIRUBIN TOTAL 0.3 mg/dL (0.2-1.0); CALCIUM 9.4 mg/dL (8.7-10.3); CARBON DIOXIDE,CO2 29.4 mmol/L (21.0-32.0); CREATININE 0.72 mg/dL (0.51-1.17); EST CRCL DRUG DOSING (CG) 81.41 mL/min; POTASSIUM,K 4.4 mmol/L (3.5-5.1); PROTEIN TOTAL,TP 6.9 g/dL (6.4-8.2)
[2024-09-29] MEDS: Sodium Chloride 0.9% 1,000 ML IV SCH (10:35)
[2024-09-29] MEDS: Ondansetron 4 MG/2 ML SDV IVPUSH ONE (10:35)
[2024-09-29 10:53] VITALS: BP 131/71; PULSE 79
== END 2024-09-29 11:22 ==
LOC: KA.ED 09:20
DX: S43.004A Unspecified dislocation of right shoulder joint, initial encounter (principal); I11.0 Hypertensive heart disease with heart failure; I50.9 Heart failure, unspecified; I25.2 Old myocardial infarction; E66.9 Obesity, unspecified; E11.9 Type 2 diabetes mellitus without complications; Z91.040 Latex allergy status; Z79.82 Long term (current) use of aspirin; Z79.899 Other long term (current) drug therapy; Z86.16 Personal history of COVID-19; Z90.49 Acquired absence of other specified parts of digestive tract; Z90.710 Acquired absence of both cervix and uterus; Z68.38 Body mass index [BMI] 38.0-38.9, adult; W07.XXXA Fall from chair, initial encounter
CPT/HCPCS: 73030-RT; 80053; 85025; 96361; 96374; 99285-25; J2405; J7030

== ENCOUNTER 2024-12-15 06:46 | Emergency (ER) | payer OTHER ==
[2024-12-15 07:14] VITALS: BP 143/80; PULSE 76
[2024-12-15 07:20] LABS: BASOPHILS ABSOLUTE AUTO 0.01 10^3/uL (0.00-0.10); BASOPHILS PERCENT AUTO 0.1 % (0.0-1.0); EOSINOPHILS ABSOLUTE AUTO 0.12 10^3/uL (0.10-0.30); EOSINOPHILS PERCENT AUTO 1.6 % (1.0-3.0); HEMATOCRIT 35.2 % (37.0-47.0); HEMOGLOBIN 11.2 g/dL (12.0-16.0); IMMATURE GRAN ABSOLUTE AUTO 0.01 10^3/uL (0.00-0.04); IMMATURE GRAN PERCENT AUTO 0.1 % (0.0-0.4); LYMPHOCYTES ABSOLUTE AUTO 1.52 10^3/uL (1.00-4.00); LYMPHOCYTES PERCENT AUTO 20.1 % (20.0-40.0); MEAN CORPUSCULAR HEMOGLOBIN 30.9 pg (27.0-31.0); MEAN CORPUSCULAR HGB CONC 31.8 g/dL (32.0-36.0); MEAN CORPUSCULAR VOLUME 97.2 fL (82.0-92.0); MEAN PLATELET VOLUME 8.9 fL (7.4-10.4); MONOCYTES ABSOLUTE AUTO 0.72 10^3/uL (0.10-0.80); MONOCYTES PERCENT AUTO 9.5 % (2.0-8.0); NEUTROPHILS ABSOLUTE AUTO 5.19 10^3/uL (2.50-7.00); NEUTROPHILS PERCENT AUTO 68.6 % (50.0-70.0); PLATELET COUNT,PLT 320 10^3/uL (150-400); RED BLOOD CELL COUNT 3.62 10^6/uL (3.80-5.50); RED CELL DISTRIBUTION WIDTH 14.3 % (11.5-14.5); WHITE BLOOD CELL COUNT,WBC 7.57 10^3/uL (5.00-10.00)
[2024-12-15 07:35] LABS: ALBUMIN 3.43 g/dL (3.40-5.00); BILIRUBIN TOTAL 0.3 mg/dL (0.2-1.0); CALCIUM 7.6 mg/dL (8.7-10.3); CARBON DIOXIDE,CO2 24.8 mmol/L (21.0-32.0); CREATININE 0.56 mg/dL (0.51-1.17); EST CRCL DRUG DOSING (CG) 104.67 mL/min; POTASSIUM,K 3.2 mmol/L (3.5-5.1); PROTEIN TOTAL,TP 7.6 g/dL (6.4-8.2)
[2024-12-15 07:40] LABS: ANION GAP 14.4 mmol/L (5-15)
[2024-12-15] MEDS ORDERED: Naloxone 0.4 MG/ML SDV IVPUSH PRN (07:45)
[2024-12-15] MEDS: HYDROmorphone 1 MG/ML Syringe IVPUSH ONE (07:52)
[2024-12-15] MEDS: Ondansetron 4 MG/2 ML SDV IVPUSH ONE (07:52)
[2024-12-15] MEDS ORDERED: NS with KCl 40mEq 1,000 ML IV SCH (08:15)
[2024-12-15] MEDS: NS + KCl 20mEq/L 1,000 ML IV SCH (08:33)
== END 2024-12-15 09:02 ==
LOC: KA.ED 06:46
DX: S43.014A Anterior dislocation of right humerus, initial encounter (principal); E87.6 Hypokalemia; D64.9 Anemia, unspecified; I25.2 Old myocardial infarction; I11.0 Hypertensive heart disease with heart failure; I50.9 Heart failure, unspecified; K21.9 Gastro-esophageal reflux disease without esophagitis; E11.9 Type 2 diabetes mellitus without complications; E66.9 Obesity, unspecified; Z68.42 Body mass index [BMI] 45.0-49.9, adult; Z86.16 Personal history of COVID-19; Z96.611 Presence of right artificial shoulder joint; Z98.84 Bariatric surgery status; Z90.49 Acquired absence of other specified parts of digestive tract; Z90.710 Acquired absence of both cervix and uterus; Z91.040 Latex allergy status; Z79.82 Long term (current) use of aspirin; Z79.899 Other long term (current) drug therapy; X58.XXXA Exposure to other specified factors, initial encounter
CPT/HCPCS: 23650; 36415; 73030-RT; 80053; 85025; 96374; 96375; 99285-25; J1171; J2405; J3480

== ENCOUNTER 2025-01-19 08:55 | Emergency (ER) | payer OTHER ==
[2025-01-19] MEDS ORDERED: Morphine 2 MG/ML SYRINGE IVPUSH PRN (10:33)
[2025-01-19] MEDS: Ondansetron 4 MG/2 ML SDV IVPUSH ONE (10:52)
[2025-01-19] MEDS: Morphine 2 MG/ML SYRINGE IVPUSH ONE (10:54)
[2025-01-19 12:13] VITALS: BP 118/64; PULSE 76
== END 2025-01-19 12:30 ==
LOC: KA.ED 08:55
DX: S43.014A Anterior dislocation of right humerus, initial encounter (principal); I11.0 Hypertensive heart disease with heart failure; I50.9 Heart failure, unspecified; I25.2 Old myocardial infarction; K21.9 Gastro-esophageal reflux disease without esophagitis; E66.9 Obesity, unspecified; E11.9 Type 2 diabetes mellitus without complications; Z91.040 Latex allergy status; Z79.82 Long term (current) use of aspirin; Z79.899 Other long term (current) drug therapy; Z86.16 Personal history of COVID-19; Z90.49 Acquired absence of other specified parts of digestive tract; Z90.710 Acquired absence of both cervix and uterus; Z68.42 Body mass index [BMI] 45.0-49.9, adult; X50.1XXA Overexertion from prolonged static or awkward postures, initial encounter
CPT/HCPCS: 73030-RT; 96374; 96375; 99285-25; J2270; J2405